=== PATIENT | female | born 1995 | race Caucasian/White ===

== ENCOUNTER 2019-08-02 18:48 | Inpatient (IN) ==
[~2019-08-02 18:48] MED LIST: Famotidine 20 MG/2 ML VIAL IVP PRN; Metoclopramide 10 MG/2 ML VIAL IVP PRN; Naloxone 0.4 MG/ML INJ IVP PRN; Ondansetron 4 MG/2 ML VIAL IVP PRN
[2019-08-02] MEDS ORDERED: Oxytocin 20 units/ LR 1000 mL 20 UNIT/1,000 ML BAG IVC SCH (19:00)
[2019-08-02] MEDS ORDERED: Ringers Solution, Lactated 1,000 ML IVC SCH (19:00)
[2019-08-02 19:32] LABS: Basophils # 0.1 K/mcL (0.0-0.2); Basophils % 0.4 %; Eosinophils % 0.2 %; Lymphocytes # 2.2 K/mcL (0.6-4.6); Lymphocytes % 17.9 %; Mean Corpuscular HGB Conc 32.5 g/dL (31.6-35.5); Mean Corpuscular Hemoglobin 29.7 pg (28.0-33.3); Mean Corpuscular Volume 91.3 fL (83.0-100.0); Mean Platelet Volume 10.2 fL (9.4-12.4); Monocytes # 0.6 K/mcL (0.0-1.3); Monocytes % 4.9 %; Neutrophils # 9.2 K/mcL (1.6-8.9); Platelet Count 339 K/mcL (140-400); Red Blood Count 4.38 M/mcL (3.82-4.97); Red Cell Distribution Width 13.5 % (11.5-14.5); Segmented Neutrophils % 75.6 %; White Blood Count 12.2 K/mcL (4.3-11.1)
[2019-08-02 19:57] LABS: Amphetamine Screen,Urine Negative ng/mL (Cutoff=1000); Barbiturate Screen,Urine Negative ng/mL (Cutoff=200); Benzodiazepines Screen,Urine Negative ng/mL (Cutoff=200); Cannabinoid Screen,Urine Negative ng/mL (Cutoff = 50); Cocaine Screen,Urine Negative ng/mL (Cutoff= 300); Opiate Screen,Urine Negative ng/mL (Cutoff=300); Phencyclidine Screen,Urine Negative ng/mL (Cutoff=25)
[2019-08-02] MEDS ORDERED: EPHEDrine 50 MG/ML VIAL IVP PRN (21:38)
[2019-08-02] MEDS ORDERED: Epidural Premix (fent/bupiv) 110 ML EP SCH (21:45)
[2019-08-03] MEDS ORDERED: *HR* FentaNYL (PF) 100 MCG/2 ML VIAL ONE (02:28)
[2019-08-03] MEDS ORDERED: Ropivacaine/PF 0.2% 20 ML VIAL ONE (02:28)
[2019-08-03] MEDS ORDERED: Oxytocin 20 units/ LR 1000 mL 20 UNIT/1,000 ML BAG IVC SCH (08:59)
[2019-08-03] MEDS ORDERED: Acetaminophen 325 MG TABLET PO PRN (08:59)
[2019-08-03] MEDS ORDERED: Oxytocin 20 units/ LR 1000 mL 20 UNIT/1,000 ML BAG IVC ONE (08:59)
[2019-08-03] MEDS ORDERED: Lanolin 7 G OINT...G. TP PRN (08:59)
[2019-08-03] MEDS: Prenatal Vit/FA 1 EACH TABLET PO SCH (09:28)
[2019-08-03] MEDS: Ibuprofen 600 MG TABLET PO PRN ×2 (09:28→20:35)
[2019-08-04 07:51] VITALS: BP 101/63
[2019-08-04] MEDS: Prenatal Vit/FA 1 EACH TABLET PO SCH (07:55)
== END 2019-08-04 13:05 | disposition home or self-care (01) | DRG 560 ==
LOC: 1NENULAB → 1NENUOBS 08-03 08:02
PROVIDERS: ADMIT Obstetrics & Gynecology; ATTEND Obstetrics & Gynecology